=== PATIENT | female | born 1970 | race Caucasian/White ===

== ENCOUNTER 2016-09-11 11:49 | Day surgery (SDC) | payer OTHER ==
[~2016-09-11] VITALS: Ht 165.1 cm; Wt 70.5 kg
[~2016-09-11 11:49] MED LIST: B-12 DOTS500 MCG PO; CARAFATE1 G PO; PROTONIX20 MG PO; PROZAC20 MG PO; SEROQUEL200 MG PO
[2016-09-11 12:43] VITALS: BP 104/67; Ht 165.1 cm; Wt 70.5 kg
[2016-09-11] MEDS ORDERED: ADVAIR 250/501 DISK INH (12:54)
[2016-09-11] MEDS ORDERED: [UNRECOGNIZED DRUG - OTHER] IH (12:56)
[2016-09-11] MEDS ORDERED: FLUTICASONE PRO16 GM NASAL (12:57)
[2016-09-11 13:09] LABS: BASOPHILS 0 % (0.0-2.0); EOSINOPHILS 1.1 % (0-7); HEMATOCRIT 36.8 % (36.0-48.0); HEMOGLOBIN 12.1 g/dL (12-16); IMMATURE GRANULOCYTES 0.4 % (0-5); LYMPHOCYTES 28.1 % (15-50); MCH 29.8 pg (26.0-34.0); MCHC 32.9 g/dL (31.0-37.0); MCV 90.6 fL (80.0-100.0); MEAN PLATELET VOLUME 9.8 fL (7.4-10.4); MONOCYTES 8.2 % (2-11); NEUTROPHILS 62.2 % (40-80); PLATELET COUNT 219 10x3/uL (130-400); RBC 4.06 10x6/uL (4.00-5.40); RDW 13.6 % (11.5-14.5); WBC 5.5 10x3/uL (4.8-10.8)
[2016-09-11 13:21] LABS: ANION GAP 12.1 mmol/L (8-16); CALCIUM 8.6 mg/dL (8.5-10.1); CARBON DIOXIDE 28.1 mmol/L (21.0-32.0); CREATININE - SERUM 0.9 mg/dL (0.6-1.3); POTASSIUM - SERUM 4.2 mmol/L (3.5-5.1)
--- NOTE | 2016-09-11 13:41 | NUR ---
1340-INFLATE CRE BALLOON TO 60 FR.
--- NOTE | 2016-09-16 14:29 | OP ---
PATIENT NAME: LAN MCCLAIN MEDICAL RECORD: [id number] :72 LOCATION:[facility] ADMISSION DATE: SURGEON: EVON PASTOR MD DATE OF OPERATION: 09/11/2016 PROCEDURE: This is an EGD with biopsy and EGD with balloon dilatation to 60-Luxembourger of a distal esophageal stricture. SCOPE: Olympus video gastroscope and a CRE Microvasive balloon from 45 to 60-Luxembourger. MEDICATIONS: Per TIVA anesthesia. The patient has COPD, asthma, and bronchitis. She received propofol 260 mg IV for this procedure, O2 of 4 liters. INDICATION FOR THE PROCEDURE: Dysphagia, symptoms of gastroesophageal reflux disease, and history of Albrecht's esophagus. FINDINGS: Informed consent was given. The patient was made comfortable with the above medications. After reaching an adequate level of sedation by slow IV push, the patient was placed on her left side. The endoscope was then advanced under direct visualization through the posterior pharyngeal area and advanced to the distal esophagus. At the distal esophageal area, esophageal ulcers were appreciated. A slight amount of hemorrhage was noted. Erosions were also seen. The patient had a stricture which was dilated to 60 Luxembourger without complication. A small hiatal hernia was seen both on direct and retroflex views. On entering the stomach and with advancement of the scope to the antral area, some erosions were appreciated. There was inflammation, erythema and edema to a mild to moderate degree throughout the entire stomach and Helicobacter pylori biopsy was taken at the antral area. The duodenal bulb to the second portion had mild inflammation. Biopsies were taken within the second part of the duodenum. The scope was then withdrawn. IMPRESSION: 1. Distal esophageal stricture dilated to 60-Luxembourger without complication. 2. Distal esophageal ulcers. 3. Erosive esophagitis. 4. Erosive gastritis. 5. Mild duodenitis. 6. Small hiatal hernia. PLAN: 1. The patient to follow reflux precautions stringently, both dietary and positional. No chocolate, tomatoes, citrus, caffeine, fatty foods, peppermint. The patient should not eat late at night and sit up for a couple hours after eating. 2. Continue pantoprazole at a dose of 40 mg p.o. q.a.m. and famotidine 40 mg p.o. q.h.s. 3. EGD in 8 weeks to document healing of esophageal ulcers. Return to clinic on a p.r.n. basis Caution with anti-inflammatory drugs. TRANSINT:[id number] Voice Confirmation ID: [id number] DOCUMENT ID: [id number] OPERATIVE REPORT [id number] LAN MCCLAIN BRENDA MD at 1429 CC: CHANNING HARMON MD [id number] DICTATION DATE: 09/11/16 1351 STICKER OPERATOR: 09/11/16 1427 [facility] 09/11/[address] [address]
== END 2016-09-11 15:05 | disposition home or self-care (01) ==
LOC: D.OPS 11:49
PROVIDERS: Internal Medicine Gastroenterology
DX: K22.2 Esophageal obstruction (principal); K44.9 Diaphragmatic hernia without obstruction or gangrene; K22.70 Barrett's esophagus without dysplasia; K21.0 Gastro-esophageal reflux disease with esophagitis; K29.00 Acute gastritis without bleeding; K29.80 Duodenitis without bleeding; J44.9 Chronic obstructive pulmonary disease, unspecified

== ENCOUNTER 2017-06-03 10:08 | Day surgery (SDC) | payer OTHER ==
[~2017-06-03 10:08] MED LIST changes: +ADVAIR 250/501 DISK INH; +FLUTICASONE PRO16 GM NASAL; +[UNRECOGNIZED DRUG - OTHER] IH
[2017-06-03 11:22] LABS: BASOPHILS 0.2 % (0-2); EOSINOPHILS 1.1 % (0-7); HEMATOCRIT 33.3 % (36.0-48.0); HEMOGLOBIN 11.2 g/dL (12-16); IMMATURE GRANULOCYTES 0.5 % (0-5); LYMPHOCYTES 22.9 % (15-50); MCH 30.4 pg (26.0-34.0); MCHC 33.6 g/dL (31.0-37.0); MCV 90.2 fL (80.0-100.0); MEAN PLATELET VOLUME 9.8 fL (7.4-10.4); MONOCYTES 8.9 % (2-11); NEUTROPHILS 66.4 % (40-80); PLATELET COUNT 207 10x3/uL (130-400); RBC 3.69 10x6/uL (4.00-5.40); RDW 13.9 % (11.5-14.5); WBC 6.3 10x3/uL (4.8-10.8)
[2017-06-03 11:23] LABS: CALC OSMOLALITY 271 mosm/kg (275-300); CALCIUM 8.6 mg/dL (8.5-10.1); CARBON DIOXIDE 26.1 mmol/L (21.0-32.0); CHLORIDE - SERUM 100 mmol/L (98-107); CREATININE - SERUM 0.8 mg/dL (0.6-1.3); GLUCOSE 89 mg/dL (74-106); SODIUM 136 mmol/L (136-145); UREA NITROGEN 14 mg/dL (7-18); eGFR NON AFRICAN AMERICAN 82 mL/min (90-120)
[2017-06-03] MEDS ORDERED: CYCLOBENZAPRINE10 MG PO (11:38)
[2017-06-03] MEDS ORDERED: ZOCOR40 MG PO (11:38)
[2017-06-03 11:39] VITALS: BMI 26.1
--- NOTE | 2017-06-03 15:24 | NUR ---
1525 DISCHARGE INSTRUCTIONS COMPLETE. PT HAS NO QUESTIONS RO CONCERNS AT THIS TIME. NO PRESCRIPTIONS GIVEN. BARIUM ESOPHAGRAM SCHEDULED PER DR. DELUCA ORDER. ESCORTED OUT BY VOLUNTEER.
--- NOTE | 2017-06-04 15:04 | OP ---
PATIENT NAME: LAN MCCLAIN MEDICAL RECORD: [id number] :72 LOCATION:[facility] ADMISSION DATE: SURGEON: FRANCESCA DEULCA DO DATE OF OPERATION: 06/03/2017 PROCEDURE: EGD with biopsies. INDICATIONS FOR PROCEDURE: History of gastric ulcer without obstruction and history of Albrecht's esophagus. SCOPE: MIGSIF video gastroscope. MEDICATIONS: Propofol 80 mg IV and Versed 2 mg IV per anesthesia. ESTIMATED BLOOD LOSS: Less than 2 mL. COMPLICATIONS: None. FINDINGS: Informed consent was given. The patient was made comfortable with the above medication. After reaching an adequate level of sedation by slow IV push, the patient was placed on her left side. The endoscope was then advanced under direct visualization through the mouth to the second portion of the duodenum. The upper, middle, and lower thirds of the esophagus appeared normal without obstruction, strictures, or rings. At the GE junction, there was evidence of reflux esophagitis and Albrecht esophagus. The segment is a short segment with approximately 1.5 cm in length. Multiple biopsies were taken with cold forceps to submit for histology and to rule out dysplasia. The scope was advanced beyond the GE junction into the stomach and retroflexed to view the cardia, where a medium sized sliding hiatal hernia was present. In the fundus and body of the stomach, there were a few benign appearing fundic gland type polyps. In patchy areas throughout the body and antrum of the stomach, there was some granularity and congestion of the gastric mucosa consistent with possible gastritis. Random biopsies were taken with cold forceps to submit for histology and to rule out H. pylori. The endoscope was advanced beyond the pylorus into the duodenum where the bulb and second portion of the duodenum appeared normal. The scope was then withdrawn from the patient. The patient tolerated the procedure well and there were no complications. IMPRESSION: 1. Albrecht's esophagus (short segment). There was no obvious dysplasia, but random biopsies were taken. 2. Moderate sized hiatal hernia. 3. Granularity and congestion of the stomach consistent with possible gastritis. Biopsies pending. 4. Benign appearing fundic gland type polyps in the fundus and body of the stomach. PLAN AND RECOMMENDATIONS: 1. Discharge home when recovery parameters are met. 2. Continue GERD diet and reflux precautions. 3. Continue current medications including Protonix and as needed Carafate. 4. Barium esophagram regarding dysphagia without a visualized stricture or narrowing within the esophagus. Pending those results, consider modified barium swallow and/or referral for motility/manometry study. 5. Recall EGD in 2 years for surveillance of Albrecht esophagus. OPERATIVE REPORT [id number] LAN MCCLAIN TRANSINT:[id number] Voice Confirmation ID: [id number] DOCUMENT ID: [id number] FRANCESCA DELUCA DO at 1504 CC: [id number] DICTATION DATE: 06/03/17 1437 CREATIVE CONSULTANT: 06/03/17 1454 [facility] 06/03/17 [id number] [place] [address]
[2017-08-21] MEDS ORDERED: INCRUSE ELLI62.5 MCG INH (08:40)
== END 2017-06-03 15:26 | disposition home or self-care (01) ==
LOC: D.OPS 10:08
PROVIDERS: Anesthesiology
DX: K22.70 Barrett's esophagus without dysplasia (principal); K44.9 Diaphragmatic hernia without obstruction or gangrene; K31.7 Polyp of stomach and duodenum; J44.9 Chronic obstructive pulmonary disease, unspecified; K21.9 Gastro-esophageal reflux disease without esophagitis; Z01.812 Encounter for preprocedural laboratory examination

== ENCOUNTER → 2017-06-08 08:02 | Outpatient (CLI) | payer OTHER ==
[2017-06-03 11:39] VITALS: BMI 26.1
[~2017-06-08 08:02] MED LIST changes: +CYCLOBENZAPRINE10 MG PO; +DILAUDID2 MG PO; +INCRUSE ELLI62.5 MCG INH; +KEFLEX500 MG PO; +NYSTATIN ORAL SU5 ML PO; +PHENERGAN25 MG RC; +REGLAN5 MG PO; +TYLENOL W/CODEI1 TAB PO; +ZOCOR40 MG PO; +ZOFRAN ODT4 MG/UDTAB PO
== END | disposition home or self-care (01) ==
LOC: D.RAD 08:02
DX: R13.10 Dysphagia, unspecified (principal)

== ENCOUNTER → 2017-06-26 12:43 | Outpatient (CLI) | payer OTHER ==
[2017-06-03 11:39] VITALS: BMI 26.1
== END | disposition home or self-care (01) ==
LOC: D.RAD 06-22 13:00
DX: R13.12 Dysphagia, oropharyngeal phase (principal)

== ENCOUNTER 2017-07-28 09:14 | Outpatient (CLI) | payer OTHER ==
[~2017-07-28 09:14] MED LIST changes: -DILAUDID2 MG PO; -INCRUSE ELLI62.5 MCG INH; -KEFLEX500 MG PO; -NYSTATIN ORAL SU5 ML PO; -PHENERGAN25 MG RC; -REGLAN5 MG PO; -TYLENOL W/CODEI1 TAB PO; -ZOFRAN ODT4 MG/UDTAB PO
--- NOTE | 2017-07-28 16:06 | NUR ---
1115-UNABLE TO PASS CATHETER THRU EITHER NARE AFTER ATTEMPT TIMES TWO. PROCEDURE ABORTED. LUIS IN DR. PIMENTEL'S OFFICE NOTIFIED.
[2017-08-21] MEDS ORDERED: INCRUSE ELLI62.5 MCG INH (08:40)
== END 2017-07-28 11:25 ==
LOC: D.OPS 09:14
DX: R13.10 Dysphagia, unspecified (principal); Z53.9 Procedure and treatment not carried out, unspecified reason

== ENCOUNTER 2017-08-25 07:21 | Day surgery (SDC) | payer OTHER ==
[~2017-08-25] VITALS: Ht 165.1 cm; Wt 74.5 kg
[~2017-08-25 07:21] MED LIST changes: +INCRUSE ELLI62.5 MCG INH
[2017-08-25] MEDS ORDERED: KEFLEX500 MG PO (08:33)
[2017-08-25 08:41] VITALS: BP 124/76; BMI 27.3
--- NOTE | 2017-08-25 12:27 | NUR ---
PATIENT POSITIONED LITHOTOMY ON GELPAD, ALL AREAS CHECKED PADDED SECURED WITH NO IMPINGEMENTS, ELIAN.
[2017-08-25 14:15] VITALS: BP 165/91
--- NOTE | 2017-08-25 14:15 | NUR ---
RECEIVED TO ROOM 2215 FROM RECOVERY ROOM VIA BED. ORIENTED TO ROOM AND CALL LIGHT SYSTEM. HISTORY, PASSWORD, AND MED REC OBTAINED AND PUT IN COMPUTER. CARE PLAN REVIEWED. INCENTIVE SPIROMETER GIVEN TO PATIENT AND EXPLAINED USE. VERBALIZED UNDERSTANDING. SCDs TO BLE. CALL LIGHT IN REACH. WILL CONTINUE WITH PLAN OF CARE.
[2017-08-25 14:50] VITALS: BP 120/82; Ht 165.1 cm; Wt 74.5 kg
--- NOTE | 2017-08-25 14:56 | NUR ---
DILAUDID SENIOR JAVA UI DEVELOPER INITIATED PER MD ORDER. WITNESSED PER AGATHA PIPER.
[2017-08-25 14:59] LABS: BASOPHILS 0 % (0-2); EOSINOPHILS 0.1 % (0-7); HEMATOCRIT 33.5 % (36.0-48.0); HEMOGLOBIN 10.9 g/dL (12-16); IMMATURE GRANULOCYTES 0.4 % (0-5); LYMPHOCYTES 9.9 % (15-50); MCH 29.7 pg (26.0-34.0); MCHC 32.5 g/dL (31.0-37.0); MCV 91.3 fL (80.0-100.0); MEAN PLATELET VOLUME 9.2 fL (7.4-10.4); MONOCYTES 2.3 % (2-11); NEUTROPHILS 87.3 % (40-80); PLATELET COUNT 226 10x3/uL (130-400); RBC 3.67 10x6/uL (4.00-5.40); RDW 14.1 % (11.5-14.5); WBC 7.3 10x3/uL (4.8-10.8)
[2017-08-25 15:08] LABS: CALCIUM 8.5 mg/dL (8.5-10.1); CARBON DIOXIDE 27.7 mmol/L (21.0-32.0); CREATININE - SERUM 0.9 mg/dL (0.6-1.3); POTASSIUM - SERUM 3.7 mmol/L (3.5-5.1)
--- NOTE | 2017-08-25 16:20 | NUR ---
AMBULATED 750 FEET IN HALLWAY ADLIB WITH STANDBY ASSIST. ALSO ASSISTED TO BR. VOIDED 100 CC CLEAR YELLOW URINE. VITALS STABLE. CALL LIGHT IN REACH.
--- NOTE | 2017-08-25 18:21 | NUR ---
NO CHANGES IN INITIAL ASSESSMENT. CALL LIGHT IN REACH. SCDs TO BLE. CRM BUSINESS ANALYST IN USE. WILL CONTINUE WITH PLAN OF CARE.
--- NOTE | 2017-08-25 19:50 | NUR ---
PATIENT RESTING IN BED WITH NO S/S OF DISTRESS. BROUGHT THE PATIENT FRESH ICE PACKS AND MOUTH SWABS PER HER REQUEST. PATIENT DENIES OTHER NEEDS AT THIS TIME. BED IN LOWEST POSITION AND CALL LIGHT WITHIN REACH. ENCOURAGED THE PATIENT TO CALL IF SHE HAS NEEDS.
[2017-08-25 22:00] VITALS: BP 132/68
[2017-08-26 05:00] VITALS: BP 107/43
[2017-08-26 06:46] LABS: BASOPHILS 0 % (0-2); EOSINOPHILS 0 % (0-7); HEMATOCRIT 32.2 % (36.0-48.0); HEMOGLOBIN 10.6 g/dL (12-16); IMMATURE GRANULOCYTES 0.2 % (0-5); LYMPHOCYTES 8.2 % (15-50); MCH 29.9 pg (26.0-34.0); MCHC 32.9 g/dL (31.0-37.0); MCV 90.7 fL (80.0-100.0); MEAN PLATELET VOLUME 9.5 fL (7.4-10.4); NEUTROPHILS 82.6 % (40-80); RBC 3.55 10x6/uL (4.00-5.40); RDW 14.1 % (11.5-14.5)
[2017-08-26 06:53] LABS: PLATELET COUNT 277 10x3/uL (130-400); WBC 12.7 10x3/uL (4.8-10.8)
[2017-08-26 07:03] LABS: ANION GAP 13.2 mmol/L (8-16); CALCIUM 8.1 mg/dL (8.5-10.1); CARBON DIOXIDE 27.8 mmol/L (21.0-32.0); CREATININE - SERUM 0.9 mg/dL (0.6-1.3)
[2017-08-26 07:56] VITALS: BP 108/57
--- NOTE | 2017-08-26 10:00 | NUR ---
PT WALKING IN HALLWAYS WITH TOLERATING WELL WILL CHAZ
[2017-08-26 12:23] VITALS: BP 121/50
--- NOTE | 2017-08-26 12:28 | NUR ---
UP IN ROOM WITH ASSISTING WITH AMBULATION.MONITOR FOR NEEDS
[2017-08-26] MEDS ORDERED: DILAUDID2 MG PO (12:59)
[2017-08-26] MEDS ORDERED: REGLAN5 MG PO (12:59)
--- NOTE | 2017-08-26 14:04 | NUR ---
PT DISCHARGED TO HOME VIA WHEELCHAIR DISCHARGE MEDS AND SUMMARY REVIEWED WITH PT NO QUESTIONS TOLERATED WELL
--- NOTE | 2017-08-28 08:01 | OP ---
PATIENT NAME: LAN MCCLAIN MEDICAL RECORD: [id number] :72 LOCATION:[facility] ADMISSION DATE: SURGEON: GENNARO GONZALEZ MD DATE OF OPERATION: 08/25/2017 PREOPERATIVE DIAGNOSES: 1. Gastroesophageal reflux disease with hiatal hernia. 2. Albrecht esophagus with esophagitis. 3. Dysphagia. 4. Chronic obstructive pulmonary disease. 5. Hyperlipidemia. POSTOPERATIVE DIAGNOSES: 1. Gastroesophageal reflux disease with hiatal hernia. 2. Albrecht esophagus with esophagitis. 3. Dysphagia. 4. Chronic obstructive pulmonary disease. 5. Hyperlipidemia. PROCEDURE: Laparoscopic Khloe fundoplication with hiatal hernia repair. SURGEON: Gennaro Gonzalez MD REPORT OF PROCEDURE: The patient's abdomen was prepped and draped in sterile fashion. A Veress needle was inserted in the left upper quadrant and the abdomen was insufflated. An 11-mm Visiport trocar was inserted in the midline above the umbilicus. The Veress needle was visualized and I could see there was no sign of any injury to bowel or surrounding structures. The Veress needle was then removed and in its place an 11-mm trocar was placed in the left subcostal region, then a 5-mm trocar was placed in the epigastrium, a 5-mm trocar was placed in the left lateral abdomen and a final 5-mm trocar was placed in the right lateral subcostal region. The liver retractor was inserted and the left lobe of the liver was elevated. I began our dissection through the lesser omentum. We dissected using Harmonic scalpel up to the right side of the right igor. We dissected the right side of the right igor out as far anteriorly and posteriorly as possible. Once we had this done, we extended up into the patient's thoracic cavity and freed up the esophagus. We then came to the greater curvature of the stomach and took down the short gastrics again using Harmonic scalpel. This was done all the way up to the left side of the right igor and once the left side of the right igor was freed up, then we had a 360 degree inspection of the patient's esophagus. We continued this dissection up into the thoracic cavity into the esophagus and a small hiatal hernia were all freed up. The esophageal hiatus was then reapproximated with interrupted 0 Polydek times 3. We then performed a posterior 360 degree loose wrap of the fundus of the stomach around the distal esophagus. This was done with 0 Polydek times 3. The top of the bottom sutures incorporated a bite of the esophagus. At this point, the wrap was completely intact and there was no sign of any active bleeding. We irrigated out the abdomen thoroughly with normal saline. The 11 and 12-mm trocar site fascia was then closed with 0 Vicryl using a Noel-Jose suture passer device. The liver retractor was removed along with the remaining trocars and the wounds were then infused with a total of 10 mL of 0.25% Marcaine with epinephrine and then closed with subcutaneous 5-0 Monocryl. These were then dressed appropriately. COMPLICATIONS: None. OPERATIVE REPORT [id number] LAN MCCLAIN CONDITION: Stable. ANESTHESIA: General endotracheal and local. BLOOD LOSS: Minimal. TRANSINT:[id number] Voice Confirmation ID: [id number] DOCUMENT ID: [id number] GENNARO GONZALEZ MD at 0801 CC: FRANCESCA DELUCA DO [id number] DICTATION DATE: 08/25/17 1259 DRYER AND WASHER MECHANIC: 08/25/17 1323 [facility] 08/26/17 [facility] [address] [place] [address]
== END 2017-08-26 14:59 | disposition home or self-care (01) ==
LOC: D.OPS 07:21 → D.MS 13:56 → D.OPS 08-26 14:59
PROVIDERS: Surgery
DX: K21.9 Gastro-esophageal reflux disease without esophagitis (principal); K44.9 Diaphragmatic hernia without obstruction or gangrene; K22.70 Barrett's esophagus without dysplasia; J44.9 Chronic obstructive pulmonary disease, unspecified; E78.5 Hyperlipidemia, unspecified; Z01.812 Encounter for preprocedural laboratory examination

== ENCOUNTER 2017-08-28 13:03 | Emergency (ER) | payer OTHER ==
[2017-08-25 14:50] VITALS: BMI 27.3
[~2017-08-28 13:03] MED LIST changes: +DILAUDID2 MG PO; +KEFLEX500 MG PO; +REGLAN5 MG PO
[2017-08-28 14:49] LABS: BASOPHILS 0 % (0-2); EOSINOPHILS 1.7 % (0-7); HEMATOCRIT 32.9 % (36.0-48.0); IMMATURE GRANULOCYTES 0.5 % (0-5); LYMPHOCYTES 19.4 % (15-50); MCH 30.1 pg (26.0-34.0); MCHC 33.4 g/dL (31.0-37.0); MCV 90.1 fL (80.0-100.0); MEAN PLATELET VOLUME 8.9 fL (7.4-10.4); MONOCYTES 12.5 % (2-11); NEUTROPHILS 65.9 % (40-80); PLATELET COUNT 232 10x3/uL (130-400); RBC 3.65 10x6/uL (4.00-5.40); RDW 13.9 % (11.5-14.5); WBC 6.3 10x3/uL (4.8-10.8)
[2017-08-28 15:06] LABS: ALBUMIN 3.9 g/dL (3.4-5.0); ALKALINE PHOSPHATASE 57 U/L (46-116); ALT (SGPT) 61 U/L (10-68); BILIRUBIN - TOTAL 0.35 mg/dL (0.2-1.3); CALC OSMOLALITY 280 mosm/kg (275-300); CALCIUM 9.1 mg/dL (8.5-10.1); CARBON DIOXIDE 29.6 mmol/L (21.0-32.0); CHLORIDE - SERUM 102 mmol/L (98-107); CREATININE - SERUM 0.7 mg/dL (0.6-1.3); GLUCOSE 81 mg/dL (74-106); MAGNESIUM - SERUM 2.1 mg/dL (1.8-2.4); POTASSIUM - SERUM 3.9 mmol/L (3.5-5.1); PROTEIN - SERUM 7.3 g/dL (6.4-8.2); SODIUM 141 mmol/L (136-145); UREA NITROGEN 14 mg/dL (7-18); eGFR NON AFRICAN AMERICAN > 90 mL/min (90-120)
== END 2017-08-28 17:52 | disposition home or self-care (01) ==
LOC: D.ER 13:03
PROVIDERS: Emergency Medicine
DX: R11.10 Vomiting, unspecified (principal); R07.9 Chest pain, unspecified; R10.9 Unspecified abdominal pain; D64.9 Anemia, unspecified; K21.9 Gastro-esophageal reflux disease without esophagitis; Z85.41 Personal history of malignant neoplasm of cervix uteri

== ENCOUNTER 2017-08-29 13:50 | Emergency (ER) | payer OTHER ==
[2017-08-25 14:50] VITALS: BMI 27.3
== END 2017-08-29 17:45 | disposition home or self-care (01) ==
LOC: D.ER 13:50
DX: B34.9 Viral infection, unspecified (principal); G89.18 Other acute postprocedural pain; R10.9 Unspecified abdominal pain

== ENCOUNTER 2017-09-02 17:09 | Observation (INO) | payer OTHER ==
[~2017-09-02] VITALS: Ht 165.1 cm; Wt 68.8 kg
[2017-09-02 18:49] LABS: BASOPHILS 0.2 % (0-2); EOSINOPHILS 1.4 % (0-7); HEMATOCRIT 37.3 % (36.0-48.0); HEMOGLOBIN 12.6 g/dL (12-16); IMMATURE GRANULOCYTES 0.7 % (0-5); LYMPHOCYTES 22.4 % (15-50); MCH 30.1 pg (26.0-34.0); MCHC 33.8 g/dL (31.0-37.0); MEAN PLATELET VOLUME 9.4 fL (7.4-10.4); MONOCYTES 10.2 % (2-11); NEUTROPHILS 65.1 % (40-80); PLATELET COUNT 240 10x3/uL (130-400); RBC 4.19 10x6/uL (4.00-5.40); RDW 14.2 % (11.5-14.5); WBC 5.6 10x3/uL (4.8-10.8)
[2017-09-02 20:31] LABS: CALC OSMOLALITY 283 mosm/kg (275-300); CALCIUM 9.3 mg/dL (8.5-10.1); CARBON DIOXIDE 20.3 mmol/L (21.0-32.0); CHLORIDE - SERUM 102 mmol/L (98-107); CREATININE - SERUM 0.8 mg/dL (0.6-1.3); GLUCOSE 81 mg/dL (74-106); POTASSIUM - SERUM 3.9 mmol/L (3.5-5.1); SODIUM 141 mmol/L (136-145); UREA NITROGEN 23 mg/dL (7-18); eGFR NON AFRICAN AMERICAN 82 mL/min (90-120)
[2017-09-02 21:41] VITALS: BP 126/49
[2017-09-02 23:13] VITALS: BMI 25.2
[2017-09-02] MEDS ORDERED: PHENERGAN25 MG RC (23:25)
[2017-09-02] MEDS ORDERED: ZOFRAN ODT4 MG/UDTAB PO (23:26)
[2017-09-02] MEDS ORDERED: TYLENOL W/CODEI1 TAB PO (23:27)
[2017-09-02] MEDS ORDERED: NYSTATIN ORAL SU5 ML PO (23:28)
[2017-09-03 01:13] VITALS: BP 101/56
[2017-09-03 05:00] VITALS: BP 88/43
[2017-09-03 08:53] VITALS: BP 119/62
[2017-09-03 12:24] VITALS: BP 117/51
[2017-09-03 13:27] VITALS: Ht 165.1 cm; Wt 68.8 kg
[2017-09-03] MEDS ORDERED: ZOFRAN ODT4 MG/UDTAB PO (14:53)
[2017-09-03] MEDS ORDERED: DILAUDID2 MG PO ×2 (14:55→14:57)
[2017-09-03] MEDS ORDERED: REGLAN5 MG PO (14:57)
== END 2017-09-03 15:52 | disposition home or self-care (01) ==
LOC: D.MS 17:09 → OBSVTIME 17:09 → D.MS 17:09
PROVIDERS: Surgery
DX: R13.10 Dysphagia, unspecified (principal); K21.9 Gastro-esophageal reflux disease without esophagitis; Z98.890 Other specified postprocedural states

== ENCOUNTER 2017-12-21 12:18 | Emergency (ER) | payer OTHER ==
[2017-09-03 13:27] VITALS: BMI 25.2
[~2017-12-21 12:18] MED LIST changes: +NYSTATIN ORAL SU5 ML PO; +PHENERGAN25 MG RC; +TYLENOL W/CODEI1 TAB PO; +ZOFRAN ODT4 MG/UDTAB PO
[2017-12-21 12:59] LABS: BASOPHILS 0 % (0-2); HEMOGLOBIN 13.1 g/dL (12-16); IMMATURE GRANULOCYTES 0.4 % (0-5); LYMPHOCYTES 18.3 % (15-50); MCH 30.9 pg (26.0-34.0); MCHC 33.6 g/dL (31.0-37.0); MEAN PLATELET VOLUME 10.2 fL (7.4-10.4); MONOCYTES 8.3 % (2-11); PLATELET COUNT 219 10x3/uL (130-400); RBC 4.24 10x6/uL (4.00-5.40); RDW 13.6 % (11.5-14.5); WBC 8.1 10x3/uL (4.8-10.8)
[2017-12-21 13:00] LABS: HCG SERUM NEGATIVE (NEGATIVE)
[2017-12-21 13:03] LABS: APPEARANCE CLEAR (CLEAR); BILIRUBIN NEGATIVE (NEGATIVE); COLOR YELLOW (YELLOW); GLUCOSE NEGATIVE (NEGATIVE); KETONE NEGATIVE (NEGATIVE); NITRITE NEGATIVE (NEGATIVE); PROTEIN NEGATIVE (NEGATIVE); SPECIFIC GRAVITY 1.015 (1.005-1.020); UROBILINOGEN NORMAL (NORMAL)
[2017-12-21 13:05] LABS: ALBUMIN 4.1 g/dL (3.4-5.0); ANION GAP 15.6 mmol/L (8-16); BILIRUBIN - TOTAL 0.19 mg/dL (0.2-1.3); CALCIUM 8.5 mg/dL (8.5-10.1); CARBON DIOXIDE 24.2 mmol/L (21.0-32.0); POTASSIUM - SERUM 3.8 mmol/L (3.5-5.1); PROTEIN - SERUM 7.9 g/dL (6.4-8.2)
[2017-12-21 16:02] LABS: AMYLASE - SERUM 50 U/L (25-115); LIPASE 154 U/L (73-393)
== END 2017-12-21 16:54 | disposition home or self-care (01) ==
LOC: D.ER 12:18
PROVIDERS: Emergency Medicine; Nurse Practitioner Family
DX: K52.9 Noninfective gastroenteritis and colitis, unspecified (principal); R11.10 Vomiting, unspecified; F17.200 Nicotine dependence, unspecified, uncomplicated; K21.9 Gastro-esophageal reflux disease without esophagitis

== ENCOUNTER 2018-02-01 13:28 | Day surgery (SDC) | payer OTHER ==
[~2018-02-01] VITALS: Ht 165.1 cm; Wt 66.4 kg
--- NOTE | ~2018-02-01 | OP ---
PATIENT NAME: LAN MCCLAIN MEDICAL RECORD: [id number] :72 LOCATION:[facility] ADMISSION DATE: SURGEON: FRANCESCA DELUCA DO DATE OF OPERATION: 02/01/2018 PROCEDURE: EGD with biopsies. INDICATION FOR PROCEDURE: History of Albrecht's esophagus with her last EGD being performed on 06/03/2017. She has also had history of heartburn, epigastric pain as well as nausea, and vomiting. SCOPE: Olympus video gastroscope. MEDICATIONS: Propofol 200 mg IV per anesthesia. ESTIMATED BLOOD LOSS: Minimal. COMPLICATIONS: None. FINDINGS: Informed consent was given. The patient was made comfortable with the above medication. After reaching an adequate level of sedation by slow IV push, the patient was placed on her left side. The endoscope was then advanced under direct visualization through the mouth to the second portion of the duodenum. The upper and middle thirds of the esophagus appeared normal. In the distal third of the esophagus and GE junction, there was evidence of short-segment Albrecht's esophagus with 2 main tongues extending up approximately 2 cm. Four quadrant biopsies were taken along the Albrecht's esophagus to submit for histopathology. The endoscope was advanced beyond the GE junction into the stomach and retroflexed to view the cardia. At this point, evidence of a Khloe fundoplication was visualized. The wrap appeared intact and normal. Throughout the body, antrum, and prepyloric region, there were few scattered erosions, but there were no large ulcerations or other abnormalities within the mucosa. Random gastric biopsies were taken to submit for histopathology and to rule out H. pylori. The endoscope was advanced beyond the pylorus into the duodenum. The entire exam and duodenum appeared normal. The endoscope was then withdrawn from the patient. The patient tolerated the procedure well and there were no complications. IMPRESSION: 1. Short-segment Albrecht's. Biopsies were taken. 2. History of a Khloe fundoplication involving the cardia. 3. Multiple gastric erosions which appear benign. PLAN AND RECOMMENDATIONS: 1. Discharge home when recovery parameters are met. 2. Continue GERD diet and reflux precautions. 3. Continue current medications including pantoprazole 40 mg daily. 4. Continue surveillance endoscopy for Albrecht's esophagus every 2 years. 5. Follow up in GI clinic as needed. TRANSINT:[id number] Voice Confirmation ID: [id number] DOCUMENT ID: [id number] OPERATIVE REPORT [id number] LAN MCCLAIN NATHAN A DO at 1557 CC: [id number] DICTATION DATE: 02/01/18 1501 CHECK INSPECTOR: 02/01/18 1617 [facility] 02/01/18 [place] [id number] [place] [id number]
[2018-02-01 14:06] VITALS: BP 121/71; Ht 165.1 cm; Wt 66.4 kg
[2018-02-01 14:28] LABS: HEMATOCRIT 35.3 % (36.0-48.0); HEMOGLOBIN 11.8 g/dL (12-16); MCH 31.4 pg (26.0-34.0); MCHC 33.4 g/dL (31.0-37.0); MCV 93.9 fL (80.0-100.0); MEAN PLATELET VOLUME 9.6 fL (7.4-10.4); RBC 3.76 10x6/uL (4.00-5.40); RDW 13.3 % (11.5-14.5); WBC 4.8 10x3/uL (4.8-10.8)
== END 2018-02-01 16:05 | disposition home or self-care (01) ==
LOC: D.OPS 13:28
PROVIDERS: Anesthesiology
DX: K22.70 Barrett's esophagus without dysplasia (principal); K25.9 Gastric ulcer, unspecified as acute or chronic, without hemorrhage or perforation; Z01.812 Encounter for preprocedural laboratory examination

== ENCOUNTER 2018-07-05 17:07 | Emergency (ER) | payer OTHER ==
[~2018-07-05] VITALS: Ht 165.1 cm; Wt 61.4 kg
[2018-07-05 17:14] VITALS: Ht 165.1 cm; Wt 61.4 kg
[2018-07-05 17:47] LABS: BASOPHILS 0 % (0-2); EOSINOPHILS 1.7 % (0-7); HEMATOCRIT 36.7 % (36.0-48.0); HEMOGLOBIN 12.4 g/dL (12-16); IMMATURE GRANULOCYTES 0.2 % (0-5); LYMPHOCYTES 33.2 % (15-50); MCH 30.8 pg (26.0-34.0); MCHC 33.8 g/dL (31.0-37.0); MCV 91.3 fL (80.0-100.0); MEAN PLATELET VOLUME 9.3 fL (7.4-10.4); MONOCYTES 9.6 % (2-11); NEUTROPHILS 55.3 % (40-80); PLATELET COUNT 274 10x3/uL (130-400); RBC 4.02 10x6/uL (4.00-5.40); RDW 13.2 % (11.5-14.5); WBC 5.2 10x3/uL (4.8-10.8)
[2018-07-05 17:58] LABS: AMORPHOUS SEDIMENT <1+ /lpf (NONE SEEN); APPEARANCE CLEAR (CLEAR); BACTERIA MODERATE /hpf (NONE SEEN); BILIRUBIN NEGATIVE (NEGATIVE); COLOR YELLOW (YELLOW); GLUCOSE NEGATIVE (NEGATIVE); KETONE NEGATIVE (NEGATIVE); MUCUS <1+ /lpf (NONE SEEN); NITRITE NEGATIVE (NEGATIVE); PROTEIN NEGATIVE (NEGATIVE); RED CELLS - URINE OCC /hpf (0-5); SPECIFIC GRAVITY 1.005 (1.005-1.020); UROBILINOGEN NORMAL (NORMAL)
[2018-07-05 18:02] LABS: ALBUMIN 3.9 g/dL (3.4-5.0); ALKALINE PHOSPHATASE 66 U/L (46-116); ALT (SGPT) 30 U/L (10-68); BILIRUBIN - TOTAL 0.19 mg/dL (0.2-1.3); CALC OSMOLALITY 286 mosm/kg (275-300); CALCIUM 9.6 mg/dL (8.5-10.1); CARBON DIOXIDE 28.7 mmol/L (21.0-32.0); CHLORIDE - SERUM 104 mmol/L (98-107); CREATININE - SERUM 0.8 mg/dL (0.6-1.3); GLUCOSE 96 mg/dL (74-106); POTASSIUM - SERUM 3.8 mmol/L (3.5-5.1); PROTEIN - SERUM 7.9 g/dL (6.4-8.2); SODIUM 144 mmol/L (136-145); UREA NITROGEN 12 mg/dL (7-18); eGFR NON AFRICAN AMERICAN 82 mL/min (90-120)
[2018-07-05] MEDS ORDERED: CIPRO500 MG PO (20:28)
[2018-07-05] MEDS ORDERED: TORADOL10 MG PO (20:28)
[2018-07-05 21:43] VITALS: BP 123/43
== END 2018-07-05 21:43 | disposition home or self-care (01) ==
LOC: D.ER 17:07
PROVIDERS: Family Medicine
DX: N39.0 Urinary tract infection, site not specified (principal); N83.201 Unspecified ovarian cyst, right side; J44.9 Chronic obstructive pulmonary disease, unspecified

== ENCOUNTER 2018-07-21 07:29 | Emergency (ER) | payer OTHER ==
[~2018-07-21] VITALS: Ht 165.1 cm; Wt 63.2 kg
[~2018-07-21 07:29] MED LIST changes: +CIPRO500 MG PO; +TORADOL10 MG PO
[2018-07-21 07:33] VITALS: Ht 165.1 cm; Wt 63.2 kg
[2018-07-21 08:02] LABS: BASOPHILS 0.2 % (0-2); EOSINOPHILS 2.9 % (0-7); HEMATOCRIT 36.5 % (36.0-48.0); HEMOGLOBIN 12.1 g/dL (12-16); IMMATURE GRANULOCYTES 0.2 % (0-5); LYMPHOCYTES 14.8 % (15-50); MCH 30.8 pg (26.0-34.0); MCHC 33.2 g/dL (31.0-37.0); MCV 92.9 fL (80.0-100.0); MEAN PLATELET VOLUME 9.7 fL (7.4-10.4); MONOCYTES 12.1 % (2-11); NEUTROPHILS 69.8 % (40-80); RBC 3.93 10x6/uL (4.00-5.40); RDW 13.7 % (11.5-14.5); WBC 6.2 10x3/uL (4.8-10.8)
[2018-07-21 08:08] LABS: PLATELET COUNT 205 10x3/uL (130-400)
[2018-07-21 08:21] LABS: ALBUMIN 3.9 g/dL (3.4-5.0); ALKALINE PHOSPHATASE 54 U/L (46-116); ALT (SGPT) 24 U/L (10-68); BILIRUBIN - TOTAL 0.22 mg/dL (0.2-1.3); CALC OSMOLALITY 276 mosm/kg (275-300); CALCIUM 8.8 mg/dL (8.5-10.1); CARBON DIOXIDE 26.1 mmol/L (21.0-32.0); CHLORIDE - SERUM 102 mmol/L (98-107); CREATININE - SERUM 0.8 mg/dL (0.6-1.3); GLUCOSE 96 mg/dL (74-106); POTASSIUM - SERUM 3.7 mmol/L (3.5-5.1); PROTEIN - SERUM 7.9 g/dL (6.4-8.2); SODIUM 139 mmol/L (136-145); UREA NITROGEN 10 mg/dL (7-18); eGFR NON AFRICAN AMERICAN 82 mL/min (90-120)
[2018-07-21 08:40] LABS: APPEARANCE CLEAR (CLEAR); BILIRUBIN NEGATIVE (NEGATIVE); COLOR YELLOW (YELLOW); GLUCOSE NEGATIVE (NEGATIVE); KETONE NEGATIVE (NEGATIVE); NITRITE NEGATIVE (NEGATIVE); PROTEIN NEGATIVE (NEGATIVE); SPECIFIC GRAVITY 1.005 (1.005-1.020); UROBILINOGEN NORMAL (NORMAL)
[2018-07-21] MEDS ORDERED: MEDROL DOSE PACK4 MG PO (09:32)
[2018-07-21] MEDS ORDERED: IPRAT-ALBUT 0.5-3 ML UPD (09:32)
[2018-07-21] MEDS ORDERED: BENZONATATE200 MG PO (09:32)
[2018-07-21] MEDS ORDERED: SCOT-TUSSI10 MG/5 ML PO (09:32)
[2018-07-21 09:59] VITALS: BP 114/49
== END 2018-07-21 10:02 | disposition home or self-care (01) ==
LOC: D.ER 07:29
PROVIDERS: Family Medicine
DX: J06.9 Acute upper respiratory infection, unspecified (principal); R05 Cough; R09.89 Other specified symptoms and signs involving the circulatory and respiratory systems; R50.9 Fever, unspecified; J44.9 Chronic obstructive pulmonary disease, unspecified

== ENCOUNTER 2019-01-19 05:34 | Day surgery (SDC) | payer OTHER ==
[~2019-01-19] VITALS: Ht 165.1 cm; Wt 67.3 kg
[~2019-01-19 05:34] MED LIST changes: +BENZONATATE200 MG PO; +IPRAT-ALBUT 0.5-3 ML UPD; +MEDROL DOSE PACK4 MG PO; +SCOT-TUSSI10 MG/5 ML PO
[2019-01-19 06:12] LABS: HEMATOCRIT 38.3 % (36.0-48.0); HEMOGLOBIN 12.7 g/dL (12-16); MCHC 33.2 g/dL (31.0-37.0); MCV 90.5 fL (80.0-100.0); MEAN PLATELET VOLUME 9.7 fL (7.4-10.4); RBC 4.23 10x6/uL (4.00-5.40); RDW 13.1 % (11.5-14.5); WBC 5.7 10x3/uL (4.8-10.8)
[2019-01-19] MEDS ORDERED: CRESTOR40 MG PO (06:19)
[2019-01-19] MEDS ORDERED: ZYPREXA10 MG PO (06:20)
[2019-01-19] MEDS ORDERED: FEXOFENADINE HC60 MG PO (06:20)
[2019-01-19 06:25] VITALS: Ht 165.1 cm; Wt 67.3 kg
--- NOTE | 2019-01-28 09:35 | OP ---
PATIENT NAME: LAN MCCLAIN MEDICAL RECORD: [id number] :72 LOCATION:[facility] ADMISSION DATE: SURGEON: FRANCESCA DELUCA DO DATE OF OPERATION: 01/19/2019 PROCEDURE: EGD with balloon dilation and biopsies. INDICATIONS FOR PROCEDURE: Dysphagia and history of Albrecht esophagus without dysplasia. SCOPE: [employer] One video gastroscope. MEDICATIONS: Propofol 150 mg IV per anesthesia. ESTIMATED BLOOD LOSS: Minimal. COMPLICATIONS: None. FINDINGS: Informed consent was given. The patient was made comfortable with the above medication. After reaching an adequate level of sedation by slow IV push, the patient was placed on her left side. The endoscope was advanced under direct visualization through the mouth to the second portion of the duodenum with ease. The entire esophagus appeared normal. Random cold forceps biopsies were taken from the mid esophagus to rule out eosinophilic esophagitis as a cause of dysphagia. At the GE junction, there was evidence of LA class A reflux-induced esophagitis and possible Albrecht esophagus. Cold forceps biopsies were taken. If this is Albrecht's, it is short segment and there are no abnormal appearing sites consistent with dysplasia. Cold forceps biopsies were taken to submit for histopathology. The endoscope was advanced beyond the GE junction into the stomach and retroflexed to view the cardia, where the prior fundoplication was visualized. It was intact. The endoscope was then retroflexed to view the entire stomach including the body and antrum. The mucosa appeared normal in its entirety. Random cold forceps biopsies were taken from the antrum to submit for histopathology and to rule out the presence of H. pylori. The endoscope was advanced beyond the pylorus into the duodenum, which appeared normal down to the second portion. The endoscope was then withdrawn back up into the stomach and a 13.5-15.5 mm CRE dilating balloon was placed through the working channel. The endoscope was brought up into the esophagus and the fundoplication was dilated slightly to 15.5 mm maximum diameter successfully. The endoscope was then withdrawn from the patient. The patient tolerated the procedure well, and there were no complications. IMPRESSION: 1. LA class A reflux reflux-induced esophagitis and possible Albrecht esophagus. Biopsies were taken. 2. History of Khloe fundoplication, which appears intact. Balloon dilation was performed to attempt to dilate this slightly to 15.5 mm maximum diameter. 3. Otherwise, normal EGD. PLAN AND RECOMMENDATIONS: 1. Discharge home when recovery parameters are met. 2. Follow up biopsy specimen results. 3. Continue current diet and reflux precautions. 4. If dysphagia persists, consider esophageal manometry to rule out esophageal dysmotility. OPERATIVE REPORT [id number] LAN MCCLAIN 5. Recall endoscopy will be dependent on results of biopsies regarding the patient's history of Albrecht esophagus. TRANSINT:[id number] Voice Confirmation ID: [id number] DOCUMENT ID: [id number] FRANCESCA DELUCA DO at 0935 CC: [id number] DICTATION DATE: 01/19/19 08 SISAL OPERATOR: 01/19/19 0944 [facility] 01/19/19 [id number] [place] [address]
== END 2019-01-19 09:18 | disposition home or self-care (01) ==
LOC: D.OPS 05:34
PROVIDERS: Anesthesiology; ATTEND Internal Medicine Gastroenterology
DX: K21.0 Gastro-esophageal reflux disease with esophagitis (principal); K29.50 Unspecified chronic gastritis without bleeding; K22.70 Barrett's esophagus without dysplasia; Z01.812 Encounter for preprocedural laboratory examination